=== PATIENT | male | born 1980 | race Caucasian/White ===

== ENCOUNTER 2019-05-20 14:37 | Emergency (ER) | payer OTHER ==
--- NOTE | 2019-05-20 14:52 | PDOC ---
History of Present Illness <Dianne Rush - Last Filed: 05/20/19 16:25> - History of Present Illness Initial Comments: 05/20/19 15:13 Mr. Masters is a 38 yo male w/ no pmh who presents for evaluation of 2 day history of R sided facial paralysis. Patient reports symptoms started Thursday when he woke up, last normal around 1am when he went to bed that same day. Patient reports he feels his speech is different and that his face feels numb. Speech sounds different as well. Patient reports symptoms included R ear "fullness" on Thursday as well. Denies any other complaints at this time. The patient denies chest pain, shortness of breath, headache and dizziness. Denies fever, chills, nausea, vomit, diarrhea and constipation. Denies dysuria, frequency, urgency and hematuria. <Torito Colorado - Last Filed: 05/20/19 16:36> - General Chief Complaint: Facial Droop Stated Complaint: FACIAL DROOP/HEADACHE Time Seen by Provider: 05/20/19 14:51 Past History <Dianne Rush - Last Filed: 05/20/19 16:25> <Torito Colorado - Last Filed: 05/20/19 16:36> - Past Medical History Allergies/Adverse Reactions: Allergies Allergy/AdvReac Type Severity Reaction Status Date / Time No Known Allergies Allergy Verified 05/20/19 14:50 Home Medications: Ambulatory Orders Prednisone 10 mg PO ASDIR #30 tablet 05/20/19 Review of Systems - Review of Systems Comments:: 05/20/19 15:18 GENERAL/CONSTITUTIONAL: No fever or chills. No weakness. HEAD, EYES, EARS, NOSE AND THROAT: +R sided facial droop w/ ear "fullness" and altered speech. No change in vision. No ear pain or discharge. No sore throat. CARDIOVASCULAR: No chest pain or shortness of breath RESPIRATORY: No cough, wheezing, or hemoptysis. GASTROINTESTINAL: No nausea, vomiting, diarrhea or constipation. GENITOURINARY: No dysuria, frequency, or change in urination. MUSCULOSKELETAL: No joint or muscle swelling or pain. No neck or back pain. SKIN: No rash NEUROLOGIC: No headache, vertigo, loss of consciousness, or change in strength/ sensation. ENDOCRINE: No increased thirst. No abnormal weight change HEMATOLOGIC/LYMPHATIC: No anemia, easy bleeding, or history of blood clots. ALLERGIC/IMMUNOLOGIC: No hives or skin allergy. <Torito Colorado - Last Filed: 05/20/19 16:36> *Physical Exam - Vital Signs Last Vital Signs Temp Pulse Resp BP Pulse Ox 98.2 F 67 16 152/92 95 05/20/19 14:51 05/20/19 14:51 05/20/19 14:51 05/20/19 14:51 05/20/19 14:51 <Dianne Rush - Last Filed: 05/20/19 16:25> - Physical Exam Comments: 05/20/19 15:19 GENERAL: Awake, alert, and fully oriented, in no acute distress HEAD: +R sided facial droop, non-forehead sparing. No signs of trauma, normocephalic, atraumatic EYES: PERRLA, EOMI, sclera anicteric, conjunctiva clear ENT: Auricles normal inspection, hearing grossly normal, nares patent, oropharynx clear without exudates. Moist mucosa NECK: Normal ROM, supple, no lymphadenopathy, JVD, or masses LUNGS: No distress, speaks full sentences, clear to auscultation bilaterally HEART: Regular rate and rhythm, normal S1 and S2, no murmurs, rubs or gallops, peripheral pulses normal and equal bilaterally. ABDOMEN: Soft, nontender, normoactive bowel sounds. No guarding, no rebound. No masses EXTREMITIES: Normal inspection, Normal range of motion, no edema. No clubbing or cyanosis. NEUROLOGICAL: Cranial nerves II through XII grossly intact. Normal speech, normal gait, no focal sensorimotor deficits SKIN: Warm, Dry, normal turgor, no rashes or lesions noted. <Torito Colorado - Last Filed: 05/20/19 16:36> ED Treatment Course - Medications Given in the ED: ED Medications Discontinued Medications Generic Name Dose Route Start Last Admin Trade Name Freq PRN Reason Stop Dose Admin Prednisone 60 mg 05/20/19 15:22 05/20/19 15:38 Deltasone - PO 05/20/19 15:23 60 mg ONCE ONE Administration <Dianne Rush - Last Filed: 05/20/19 16:25> Medical Decision Making - Medical Decision Making 05/20/19 16:35 Mr. Masters is a 38 yo male w/ pmh as described who presents for evaluation of symptoms concerning for martinez's palsy. Patient given prednisone in ER and started on steroid taper. Will f/u w/ neurology. No concern for acute process. Discharging to home. <Torito Colorado - Last Filed: 05/20/19 16:36> *DC/Admit/Observation/Transfer - Discharge Dispostion Decision to Admit order: No <Dianne Rush - Last Filed: 05/20/19 16:25> <Torito Colorado - Last Filed: 05/20/19 16:36> Diagnosis at time of Disposition: Martinez's palsy - Discharge Dispostion Disposition: HOME Condition at time of disposition: Stable - Prescriptions Prescriptions: Prednisone 10 mg PO ASDIR #30 tablet - Referrals Referrals: Andreas Walls MD [Staff Physician] - - Patient Instructions Printed Discharge Instructions: DI for Martinez's Palsy
--- NOTE | 2019-05-20 14:53 | PDOC ---
Rapid Medical Evaluation Chief Complaint: Facial Droop Time Seen by Provider: 05/20/19 14:51 Medical Evaluation: Allergies Allergy/AdvReac Type Severity Reaction Status Date / Time No Known Allergies Allergy Verified 05/20/19 14:50 05/20/19 14:53 I have performed a brief in-person evaluation of this patient. The patient presents with a chief complaint of: facial droop, headache x 3 days Pertinent physical exam findings:stable and in NAD, non-focal I have ordered the following: provider already signed up, he will determine The patient will proceed to the ED for further evaluation. 05/20/19 14:53
[2019-05-20 14:54] VITALS: BP 152/92; PULSE 67; TEMP 98.2; BMI 33.5
[2019-05-20] MEDS ORDERED: predniSONE 20 MG TABLET (UD) PO ONE (15:22)
[2019-05-20] MEDS ORDERED: predniSONE 20 MG TABLET (UD) ONE (15:33)
--- NOTE | 2019-05-20 16:15 | PDOC ---
Documentation entered by Vanessa Franco SCRIBE, acting as scribe for Dianne Rush MD. Dianne Rush MD: This documentation has been prepared by the Joan cope Mackenzie, SCRIBE, under my direction and personally reviewed by me in its entirety. I confirm that the documentation accurately reflects all work , treatment, procedures, and medical decision making performed by me. Attending Attestation - Resident Resident Name: Torito Colorado - ED Attending Attestation I have performed the following: I have examined & evaluated the patient, The case was reviewed & discussed with the resident, I agree w/resident's findings & plan, Exceptions are as noted - HPI HPI: The patient is a 38 year old male, with no significant PMH who presents to the emergency department with 2 days of right sided facial droop. Patient states symptoms first presented when he woke up Thursday morning. Patient reports noticing changes in sensation in his face, as well as changes in his ability to speak. Patient states speech feels and sounds different to him. Patient also notes a feeling of right ear fullness. The patient denies chest pain, shortness of breath, headache and dizziness. Denies fever, chills, nausea, vomiting, diarrhea and constipation. Denies dysuria, frequency, urgency and hematuria. Allergies: NKDA Past surgical history: None reported Social history: None reported 05/20/19 15:43 - Physicial Exam PE: GENERAL: Awake, alert, and fully oriented, in no acute distress HEAD: No signs of trauma EYES: PERRLA, EOMI, sclera anicteric, conjunctiva clear ENT: +R-sided facial droop affecting the entire side and forehead. Auricles normal inspection, hearing grossly normal, nares patent, oropharynx clear without exudates. Moist mucosa NECK: Normal ROM, supple, no lymphadenopathy, JVD, or masses LUNGS: Breath sounds equal, clear to auscultation bilaterally. No wheezes, and no crackles HEART: Regular rate and rhythm, normal S1 and S2, no murmurs, rubs or gallops ABDOMEN: Soft, nontender, normoactive bowel sounds. No guarding, no rebound. No masses EXTREMITIES: Normal range of motion, no edema. No clubbing or cyanosis. No cords, erythema, or tenderness NEUROLOGICAL: +R-sided facial droop, otherwise cranial nerves II through XII grossly intact. Normal speech, normal gait. Motor and sensation intact SKIN: Warm, Dry, normal turgor, no rashes or lesions noted. 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 No recent insect bites, no rashes. Lyme considered unlikely. Steroid taper, DC.
== END 2019-05-20 17:00 | disposition home or self-care (01) ==
LOC: JER 14:37
DX: G51.0 Bell's palsy (principal)
CPT/HCPCS: 99281-25